=== PATIENT | male | born 2000 | race Hispanic/Latino ===

== ENCOUNTER 2021-09-04 21:11 | Emergency (ER) | payer OTHER ==
[~2021-09-04] VITALS: Ht 17.8 cm; Wt 136.1 kg
[2021-09-04] MEDS ORDERED: NAPROXEN250 MG PO (21:39)
== END 2021-09-04 22:10 | disposition home or self-care (01) ==
LOC: ER 21:18
DX: M79.622 Pain in left upper arm (principal); M75.22 Bicipital tendinitis, left shoulder; X50.0XXA Overexertion from strenuous movement or load, initial encounter; R50.9 Fever, unspecified
CPT/HCPCS: 99282